=== PATIENT | female | born 1985 | race African-American/Black ===

== ENCOUNTER 2016-11-30 22:24 | Outpatient (CLI) | payer OTHER ==
[~2016-11-30] VITALS: Ht 162.6 cm; Wt 77.3 kg
[2016-11-30 22:43] VITALS: BP 115/55; PULSE 88; TEMP 98.4
[2016-11-30] MEDS ORDERED: PRENATAL (22:51)
[2016-11-30 23:00] VITALS: BP 115/55; PULSE 88; TEMP 98.4
[2016-11-30 23:30] VITALS: BP 107/56; PULSE 75
[2016-12-01] VITALS: BP 109/58; PULSE 84
[2016-12-01 00:35] VITALS: BP 108/58; PULSE 86
== END 2016-12-01 00:45 | disposition home or self-care (01) ==
LOC: LDRO 22:24
DX: O26.893 Other specified pregnancy related conditions, third trimester (principal); R10.9 Unspecified abdominal pain; Z3A.30 30 weeks gestation of pregnancy

== ENCOUNTER 2017-02-07 10:49 | Outpatient (CLI) | payer OTHER ==
[~2017-02-07] VITALS: Ht 162.6 cm; Wt 89.5 kg
--- NOTE | 2017-02-07 10:45 | NUR ---
1045- 39.6, G5L3 patient arrives on unit with complaints of contractions that started at 0100 this am, which were 10 min apart. State contractions are currently every 30min apart. Two contractions noted on monitor; patient denies feeling these contractions. Patient reports normal movement. Denies any leaking of fluids or vaginal bleeding. FHM and toco explained, applied, and tracing well. FHR baseline 140's with moderate variabiliy, positive for accels, no decels. Vital signs obtained. Assessment completed. SVE 2/60/-3 and vertex. Bag of harrington intact. Plan of care reviewed with patient and family who verbalize understanding. 1109- Dr. Merrill updated on patient. See physician notifications.
[~2017-02-07 10:49] MED LIST: PRENATAL
[2017-02-07 10:59] VITALS: BP 118/73; PULSE 75; TEMP 98.8
[2017-02-07 11:33] VITALS: BP 114/68; PULSE 83
--- NOTE | 2017-02-07 11:33 | NUR ---
1133- Monitors off and patient ambulatory in halls with spouse.
--- NOTE | 2017-02-07 12:00 | NUR ---
1200- Monitors on and tracing well. SVE /-3. 1210- Dr. Merrill updated and orders received. See physician notification. FHR reactive; monitors off. 1220- Discharge instructions reviewed with a patient and spouse who verbalize understanding. Ambulatory off unit to private vehicle with spouse.
[2017-02-07 12:10] VITALS: BP 120/77; PULSE 89
== END 2017-02-07 12:20 | disposition home or self-care (01) ==
LOC: LDRO 10:49 → LDR 11:00 → LDRO 12:20
DX: Z34.83 Encounter for supervision of other normal pregnancy, third trimester (principal); Z3A.39 39 weeks gestation of pregnancy
CPT/HCPCS: OP

== ENCOUNTER 2017-02-09 01:40 | Inpatient (IN) | payer OTHER ==
[2017-02-09] VITALS (12 sets, daily range): BP systolic 118–150; BP diastolic 66–88; PULSE 65–90; TEMP 97.8–98.2
[~2017-02-09] VITALS: Ht 162.6 cm; Wt 89.5 kg
[2017-02-09 02:29] LABS: HEMATOCRIT 38.2 % (37.0-47.0); HEMOGLOBIN 12.2 g/dl (12.5-16.0); MEAN CELL VOLUME 97 fl (80.0-100.0); MEAN CORPUSCULAR HEMOGLOBIN 31 pg (27.0-31.0); MEAN CORPUSCULAR HGB CONC 32 g/dl (33.0-37.0); MEAN PLATELET VOLUME 10.9 fl (7.4-10.4); PLATELET COUNT 207 K/mm3 (130-400); RED BLOOD COUNT 3.95 M/mm3 (4.10-5.30); REDCELL DISTRIBUTION WIDTH-CV 13.3 % (11.5-14.5); WHITE BLOOD COUNT 9.6 K/mm3 (4.8-10.8)
[2017-02-09 02:32] LABS: ADD PATHOLOGY DIFF REVIEW NO
[2017-02-09 02:54] LABS: BAND 7 % (0-10); NEUTROPHILS 57 % (42.0-75.2); PLATELET ESTIMATE NORMAL (NORMAL); TOTAL CELLS COUNTED 100
[2017-02-09] MEDS ORDERED: IBU600 MG PO (10:39)
[2017-02-09] MEDS ORDERED: PERCOCET 325 MG1 TA2 PO (10:40)
[2017-02-10 06:18] LABS: HEMOGLOBIN 10.5 g/dl (12.5-16.0)
[2017-02-10 08:20] VITALS: BP 113/68; PULSE 84; TEMP 97.8
[2017-02-10 15:54] VITALS: BP 126/75; PULSE 87; TEMP 98.3
[2017-02-10 20:45] VITALS: BP 134/67; PULSE 76; TEMP 98.2
[2017-02-11 08:12] VITALS: BP 120/73; PULSE 77; TEMP 98.5
== END 2017-02-11 11:15 | disposition home or self-care (01) | DRG 775 ==
LOC: LDRO 01:40 → LDR 01:41 → LDRO 01:41 → OB 01:45 → LDR 01:45 → OB 04:00
PROVIDERS: Obstetrics & Gynecology
PROC: 10E0XZZ Delivery of Products of Conception, External Approach (ICD-10-PCS; principal; 2017-02-09)
DX: O62.3 Precipitate labor (principal); O48.0 Post-term pregnancy; O69.81X0 Labor and delivery complicated by cord around neck, without compression, not applicable or unspecified; Z3A.40 40 weeks gestation of pregnancy; Z37.0 Single live birth
CPT/HCPCS: J2590